=== PATIENT | female | born 1960 | race Caucasian/White ===

== ENCOUNTER → 2016-10-31 | Outpatient (CLI) | payer BC, OTHER | LOC: BHSO 13:37 | DX: F41.1 Generalized anxiety disorder (principal) ==

== ENCOUNTER → 2016-12-11 | Outpatient (CLI) | payer BC, OTHER | LOC: BHSO 14:38 | DX: F33.1 Major depressive disorder, recurrent, moderate (principal) ==

== ENCOUNTER → 2017-01-22 | Outpatient (CLI) | payer BC, OTHER | LOC: BHSO 14:59 | DX: F41.1 Generalized anxiety disorder (principal) ==